=== PATIENT | male | born 1960 | race Caucasian/White ===

== ENCOUNTER → 2016-08-26 | Outpatient (CLI) | payer MEDICARE, MEDICAID ==
--- NOTE | ~2016-08-26 | NDGEN ---
PATIENT'S NAME: KALE JACKSON [facility] AGE: 55 Y [address] ROOM: [place] [id number] LOCATION: [facility] ADMIT DATE: 08/26/2016 Neurodiagnostics DISCHARGE DATE: FAMILY PHYSICIAN: Kira Begum PA-C ATTENDING PHYSICIAN: JULIA CLAROS PROCEDURE: NERVE CONDUCTIONS/EMG OF THE BILATERAL UPPER AND LOWER EXTREMITIES. DATE OF PROCEDURE: 08/26/2016 INDICATION: This 55-year-old male patient who has had progressive weakness essentially relegated to bulbar power whereby he has diminished ability to puff out his cheeks, some difficulty with chewing and swallowing, hypophonia, and progressive slowing of his speech in general. He maintains normal power in the bilateral upper extremities as well as lower extremities. He does have findings somewhat suggestive of upper motor neuron pathology with increase in reflexes seen in the bilateral deep tendon reflexes as well as clonus at the feet. Weakness again has been progressive for a period of many months, especially in the area of chewing and swallowing. Furthermore, he shows an odd gait with evidence for scissoring of his gait and increased tone in his limbs. Initially, the thought was he had primarily upper motor neuron findings with tone increased in the gait; however, over the past few months bulbar weakness has become more prominent. The nerve conduction EMG was done today for any evidence to suggest motor neuron disease. DESCRIPTION: Nerve conduction studies were done in the bilateral upper and lower extremities. In the median and ulnar motor nerves, there were normal motor onset latencies, durations, amplitudes of compound motor action potentials and completely normal nerve conduction velocities. In the lower extremities, peroneal motor and tibial motor nerves were stimulated as well as sensory nerve conductions done in the sural, ulnar, and median sensory nerves. The tibial motor nerves revealed normal motor onset latencies, normal amplitudes, and normal nerve conduction velocities. There was delay in motor onset latencies seen in the right peroneal nerve with low compound motor action potential amplitudes. This was the only isolated finding of slowing with likely secondary low amplitudes. In the median and ulnar sensory nerves, there were normal peak latencies with normal nerve conduction velocities and normal amplitudes. The sural sensory nerves bilaterally showed a normal peak latencies, normal amplitudes, and normal nerve conduction velocities. All the F-wave studies including median, ulnar, peroneal, and tibial nerves were within normal limits. Next needle EMG was performed in the bilateral PATIENT'S NAME: KALE JACKSON [facility] AGE: 55 Y [address] ROOM: [place], [place] [id number] LOCATION: [facility] ADMIT DATE: 08/26/2016 Neurodiagnostics DISCHARGE DATE: FAMILY PHYSICIAN: Kira Begum PA-C ATTENDING PHYSICIAN: JULIA CLAROS extremities as well as in the cervical paraspinal muscles and in the tongue. In the bilateral deltoid abductus, pollicis brevis, biceps brachii, triceps, vastus lateralis, medial gastrocnemius muscles, anterior tibialis muscles, there was no evidence to support a spontaneous electrical activity such as fibrillations or positive sharp waves. They did seem to be a slight diminished recruitment of motor unit action potentials seen in the right triceps brachii and triceps muscles as well as the right deltoid muscles, but again no abnormal spontaneous electrical activity was seen. There was a normal insertion pattern also and no evidence of polyphasic motor units. The genioglossus muscle (tongue) displayed no evidence of fibrillation potentials. Finally cervical paraspinal muscles showed a normal insertion pattern with no evidence of fibrillation potentials or positive sharp waves. There was normal recruitment of the cervical paraspinal muscles with neck extension. IMPRESSION: Nerve conduction studies of the bilateral upper and lower extremities were essentially all within normal limits except for an isolated finding of slowing at the right peroneal muscle with likely secondary low amplitudes. This isolated finding is unclear as to the etiology, so it may be mechanical due to inability to stimulate the nerve properly and record over the muscle. Overall, needle EMG did not show any evidence of spontaneous electrical activity. They were likely hallmark of early motor neuron disease nor was there evidence for fibrillation potentials in the tongue. Nonetheless, the clinical pattern does suggest some type of bulbar weakness that is progressive in the setting of increased tone and scissoring gait with a differential possibly consistent with a bulbar variant of ALS. The patient would benefit from consultation with a neuromuscular expert concerning his clinical findings as it presents to our office over the past few months. MD DANGELO GONZALEZ/marquez /[id number] dtt: 09/08/16 [id number] , JULIA CLAROS dtd: 09/07/16 [id number]
== END | disposition disaster alternative care site (69) ==
LOC: GNEU 10:37
DX: G12.29 Other motor neuron disease (principal); R26.9 Unspecified abnormalities of gait and mobility; R47.9 Unspecified speech disturbances; R13.10 Dysphagia, unspecified